=== PATIENT | female | born 1955 | race African-American/Black ===

== ENCOUNTER 2016-11-04 17:15 | Emergency (ER) | payer OTHER ==
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
[2016-11-04] MEDS ORDERED: [UNRECOGNIZED DRUG - REMARK] (17:35)
[2016-11-04] MEDS ORDERED: K-DUR10 MEQ PO (17:36)
[2016-11-04] MEDS ORDERED: MULTI-VITAMIN1 EAC1 PO (17:36)
[2016-11-04] MEDS ORDERED: LASIX PO (17:36)
[2016-11-04] MEDS ORDERED: VITAMIN D-32000 UNI1 PO (17:37)
== END 2016-11-04 19:01 | disposition home or self-care (01) ==
LOC: SED 17:15 → EDBD 18:01 → SED 19:01
DX: S16.1XXA Strain of muscle, fascia and tendon at neck level, initial encounter (principal); I10 Essential (primary) hypertension; V89.2XXA Person injured in unspecified motor-vehicle accident, traffic, initial encounter; Y92.410 Unspecified street and highway as the place of occurrence of the external cause
CPT/HCPCS: 72040; 99284